=== PATIENT | male | born 2000 ===

== ENCOUNTER 2022-05-08 22:36 | Emergency (ER) | payer SELFPAY ==
[2022-05-09] MEDS ORDERED: Boostrix 0.5 ML (Tdap) VIAL (>/=7 yrs of age) IM ONE (00:15)
== END 2022-05-09 00:18 | disposition home or self-care (01) ==
LOC: CSHERS 22:36
DX: S81.812A Laceration without foreign body, left lower leg, initial encounter (principal); Z23 Encounter for immunization; W19.XXXA Unspecified fall, initial encounter
CPT/HCPCS: 12002; 90471; 90715